=== PATIENT | female | born 2005 | race Caucasian/White ===

== ENCOUNTER 2025-09-27 14:03 | Emergency (ER) | payer BC, SELFPAY ==
[2025-09-27 14:06] VITALS: PULSE 80; RESP 18; O2SAT 98
[2025-09-27 14:42] VITALS: BP 125/87; PULSE 73; RESP 18; TEMP 36.7; O2SAT 98; BMI 17.1
--- NOTE | 2025-09-27 15:11 | PD.EDANX ---
ED Anxiety RME/HPI General Chief Complaint: Anxiety Stated Complaint: Panic attacks, chest pain, SOB Time Seen by Provider: 09/27/25 14:26 Arrival date/time: 09/27/25 14:03 19-year-old female patient came in for evaluation regarding anxiety-like symptoms. Patient has been suffering anxiety-like symptoms after Thanksgiving, was seen by PCP and was prescribed Lexapro first dose yesterday patient took her Lexapro today and feels still having anxiety like symptoms described as palpitation shortness of breath jittery and chest pain. Patient denies any other complaints no medication was taken prior to ER visit. Related Data Allergies Allergy/AdvReac Type Severity Reaction Status Date / Time No Known Drug Allergies Allergy Verified 09/27/25 14:10 Review of Systems Review of Systems Narrative Review of Systems: Review of system reviewed and within normal limits except mentioned in HPI ED Exam Narrative Physical exam: VITAL SIGNS: Reviewed. GENERAL APPEARANCE: Alert and interactive, follows commands, no acute distress, anxious HEAD AND FACE: Non-traumatic. ENT: PERRL, pink conjunctivitis, eyelid no trauma, Mucous membrane moist. NECK: Supple, nontender, no nuchal rigidity. CHEST: No tenderness, no crepitus, no paradoxical movement, no retractions. LUNGS: Clear, well ventilated, symmetric, no rales, no wheezing, no ronchi, no stridor, good breath sounds bilaterally. HEART: Regular rate, regular rhythm, no murmur, no gallops. ABDOMEN: Soft, positive bowel sounds, nondistended, no guarding, nontender, no rebound, no masses, RECTAL: Deferred. GENITAL: Deferred. NEUROLOGICAL: Gross motor function intact sensory function intact, Appropriate for age. MUSCULOSKELETAL: low back nontender, full range of motion. EXTREMITIES: Nontender, full range of motion. SKIN: Color pink, dry, no rash, no lacerations, no abrasions, no contusions. LYMPHATICS: Deferred. Anxious Course Vital Signs Vital signs: Vital Signs Temperature 98.1 F 09/27/25 14:42 Pulse Rate 73 09/27/25 14:42 Respiratory Rate 18 09/27/25 14:42 Blood Pressure 125/87 H 09/27/25 14:42 Pulse Oximetry (%) 98 09/27/25 14:42 Oxygen Delivery Method Room Air 09/27/25 14:42 Anxiety MDM Narrative MDM Narrative: 19-year-old female patient came in for evaluation regarding anxiety-like symptoms. Patient has been suffering anxiety-like symptoms after Thanksgiving, was seen by PCP and was prescribed Lexapro first dose yesterday patient took her Lexapro today and feels still having anxiety like symptoms described as palpitation shortness of breath jittery and chest pain. Patient denies any other complaints no medication was taken prior to ER visit. Discharge Plan Patient/Caregiver Discharge Instructions Print Language: Turkmen
--- NOTE | 2025-09-27 16:00 | EKG_ITS ---
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2005 Requested By: Edda Santillan Order Number: [id number] Reading MD: Edda Santillan Measurements Intervals [place] Rate: 74 P: 78 [place]: 150 QRS: 42 QRSD: 99 T: -59 QT: 401 QTc: 445 Interpretive Statements SINUS RHYTHM WITH SINUS ARRHYTHMIA INCOMPLETE RIGHT BUNDLE BRANCH BLOCK [90+ ms QRS DURATION, TERMINAL R IN V1/V2, 40+ ms S IN I/aVL/V4/V5/V6] MODERATE T-WAVE ABNORMALITY, CONSIDER ANTERIOR ISCHEMIA [-0.1+ mV T-WAVE IN V3/V4] MODERATE T-WAVE ABNORMALITY, CONSIDER INFERIOR ISCHEMIA [-0.1+ mV T-WAVE IN II/aVF] No previous ECG available for comparison /store/S0/[id number]
--- NOTE | 2025-09-27 16:00 | XR_ITS ---
EXAMINATION: PA chest single view TECHNIQUE: Upright PA chest single view Date and time: September 27, 2025, 1625 hours INDICATIONS: Chest pain today FINDINGS: Normal heart size Lungs are clear. Intact osseous structures IMPRESSION: No active disease
--- NOTE | 2025-09-27 16:01 | EDNOTE_ITS ---
ED Anxiety RME/HPI General Chief Complaint: Anxiety Stated Complaint: Panic attacks, chest pain, SOB Time Seen by Provider: 09/27/25 14:26 Arrival date/time: 09/27/25 14:03 This is a 19-year-old female that comes into the emergency room with complaints of panic attack chest pain and shortness of breath. Patient states that yesterday she started a new medication 10 mg of Lexapro. Patient states that after she took the medication she was very chatty and very awake. Patient states she did not feel anxious. Today after taking the Lexapro patient states that she felt like she was coming out of her skin and she got very anxious and got chest pain and shortness of breath. Patient reports that she has had a workup with Dr. Chang in [place]. Patient reports that she had a loop recorder placed she has had an echo and labs with Dr. Chang. Per patient Dr. Chang told her that there is nothing going on with her heart. Patient was also seen at [facility] in the past and was told that nothing is going on with her heart. Patient was offered Ativan at [facility] but she did not want at that time. Patient is concerned that there is something wrong with her thyroid because that has not been checked according to patient. Patient states that she also thinks that her anxiety started after she got Botox a couple weeks ago. Patient also reports that she also thinks that her anxiety started because she had her Nexplanon removed. Related Data Previous Rx's ?Medication ?Instructions ?Recorded lorazepam 0.5 mg tablet (Ativan) 0.25 mg (1/2 x 0.5 mg ) PO QDAY PRN 09/27/25 anxiety #3 tabs Allergies Allergy/AdvReac Type Severity Reaction Status Date / Time No Known Drug Allergies Allergy Verified 09/27/25 14:10 Review of Systems Review of Systems Systems Reviewed: All systems reviewed, normal except as documented Past Medical History Past Medical History Comments PMH COMMENT: Anxiety ED Exam Narrative Physical exam: VITAL SIGNS: Reviewed. GENERAL APPEARANCE: Alert and interactive, follows commands, no acute distress, HEAD AND FACE: Non-traumatic. ENT: PERRL, conjuctiva pink and clear, eyelid no trauma, Mucous membrane moist. NECK: Supple, nontender, no nuchal rigidity. CHEST: No tenderness, no crepitus, no paradoxical movement, no retractions. LUNGS: Clear, well ventilated, symmetric, no rales, no wheezing, no rhonchi, no stridor, good breath sounds bilaterally. HEART: Regular rate, regular rhythm, no murmur, no gallops. ABDOMEN: Soft, nondistended, no guarding, nontender, no rebound, no masses, NEUROLOGICAL: Gross motor function intact sensory function intact, Appropriate for age. MUSCULOSKELETAL: low back nontender, full range of motion. EXTREMITIES: No redness no swelling no skin breakdown on bilateral foot and leg. Distal neurovascular status intact bilateral foot SKIN: Color pink, dry, no rash, no lacerations, no abrasions, no contusions. Course Quality Measures none Orders Category Date Time Status EKG (ED ONLY) *Do not use* NOW Care 09/27/25 16:00 Active EKG (ED Only) Stat Exams 09/27/25 16:00 Ordered XR chest 1V Stat Exams 09/27/25 16:00 Ordered CBC Stat Lab 09/27/25 16:00 Ordered Comprehensive Metabolic Panel Stat Lab 09/27/25 16:00 Ordered TSH [Thyroid Stimulating Hormone] Stat Lab 09/27/25 16:00 Ordered Troponin I Stat Lab 09/27/25 16:00 Ordered LORazepam [Ativan] Med 09/27/25 16:00 Once 0.25 mg PO X1 ONE Vital Signs Vital signs: Vital Signs Temperature 98.1 F 09/27/25 14:42 Pulse Rate 73 09/27/25 14:42 Respiratory Rate 18 09/27/25 14:42 Blood Pressure 125/87 H 09/27/25 14:42 Pulse Oximetry (%) 98 09/27/25 14:42 Oxygen Delivery Method Room Air 09/27/25 14:42 PROCEDURES: EKG Interpretation #1: Date of EK09/27/25 Time of EK:06 Rate: 74 Interpretation: Interpreted by me (Sinus rhythm sinus arrhythmia patient has inverted T waves in lead to 3 aVF V3 V4 and flattening T waves in V5 V6.) EKG Impression: No ectopy, Normal QRS and Normal intervals Additional EKG comment: I discussed at length with patient about her EKG. Patient's EKG shows some inverted T waves in lead II, III, aVF, V3 and V4. Patient also has some flattened T waves in V6 and V5. Patient states that she was recently told by her shuffle board operator that her EKG is not normal but it is normal for her. Patient recently had loop recorder done and discussed sinus arrhythmia discussed results with patient prior to discharge. Anxiety MDM Narrative MDM Narrative: Chest x ray: FINDINGS: Normal heart size Lungs are clear. Intact osseous structures IMPRESSION: No active disease I spoke to patient at length. Patient has had a workup done in the emergency room at [facility] has had a workup done by her primary doctor and also shuffle board operator Dr. Chang. Patient recently started a medication Lexapro. Patient started having a panic attack after taking medication. It is likely she is reacting to the new medication. I did explain to her that some of the side effects of taking a new antidepressant can cause things like even suicidal ideation and worsening anxiety symptoms. I told her to discuss this with her primary doctor. Patient states that she will try to take half the tablet and see if it makes a difference. Patient requested Ativan what we give her here today because it helped her symptoms. I told patient we do not like to prescribe controlled substances but because it is a weekend I gave her a few pills to take only if she is having a panic attack. Patient has tried taking hydroxyzine and it is not successful. Patient given 3 pills of Ativan and told her to cut them in half if she needs to. Patient's significant other is with her. Patient verbalized understanding and feels comfortable plan of care. Patient told to come back to the emergency room if symptoms change or worsen. Patient data External records reviewed:: [facility] previous records Clinical information provided by:: patient Social determinants that could affect healthcare access:: none Patient has the following chronic illnesses:: none How is presenting disease/condition affected by chronic disease/condition?: no chronic disease Evaluation data The following diagnostics were reviewed and interpreted by me:: lab results, radiology exam(s) and EKG tracing(s) Lab and/or radiology exams considered but not ordered:: see note Interpretation Summary: see note Medications / Prescriptions Medications or Prescriptions considered but not ordered:: none Medication administrations:: Medication Administration History Lorazepam (Lorazepam 0.5 Mg Tablet) 0.25 mg PO X1 ONE Stop: 09/27/25 16:01 Consultations Consultation(s) initiated? (list below): No Diagnosis Most likely diagnosis given after review of the tests above:: anxiety Admission Indicated Admission indicated?: not indicated Admission Request Was there a request for admission?: No Disposition Plan Disposition Plan: Discharge Discharge Attestation Discharge Attestation: The patient and all family members were given an opportunity to ask questions and understood the discharge instructions. Discharge instructions specifically effects, indications for sooner follow up or return to the emergency department, and the expected course of current diagnosis. Patient condition: Stable Discharge Plan Plan Patient Disposition: HOME (Self Care) Patient condition on transfer: Stable Prescriptions/Referrals Prescriptions/Med Rec: New lorazepam [Ativan] 0.5 mg tablet 0.25 mg PO QDAY PRN (Reason: anxiety) Qty: 3 0RF Referrals: Casey Flowers([facility])MD [Primary Care Provider, Family Practice] - In 1 week Problem List Clinical Impression: Acute anxiety Patient/Caregiver Discharge Instructions Discharge Activity: activity as tolerated Education Materials: ED Anxiety Reaction Additional Instructions: Follow up with primary provider in 1-2 days. Come back to ED if symptoms change or worsen Print Language: [place] Island[place] Stand Alone Forms: Fatimah Award Info., Patient Portal Info Letter MARI/CHERYL Supervising Physician MARI/CHERYL Supervising Physician: eloisa
[2025-09-27 16:29] LABS: Basophils # (Auto) 0.0 Thou/mm3 (0.0-0.2); Basophils % (Auto) 0 % (0-2.5); Eosinophils # (Auto) 0.0 Thou/mm3 (0.0-0.5); Eosinophils % (Auto) 1 % (0-10); Hematocrit 38.4 % (36.0-46.0); Hemoglobin 13.2 g/dL (12.0-16.0); Immature Granulocytes Auto 0.02 Thou/mm3 (0.00-0.00); Lymphocytes # (Auto) 1.7 Thou/mm3 (1.0-5.0); Lymphocytes % (Auto) 22 % (10-50); Mean Corpuscular HGB Conc 34.4 g/dl (31.0-37.0); Mean Corpuscular Hemoglobin 30.9 pg (25.0-35.0); Mean Corpuscular Volume 90 fL (80-100); Monocytes # (Auto) 0.5 Thou/mm3 (0.0-0.8); Monocytes % (Auto) 7 % (0-12); Neutrophils # (Auto) 5.2 Thou/mm3 (1.8-7.7); Neutrophils % (Auto) 70 % (37-80); Nucleated Red Blood Cell # 0.00 Thou/mm3 (0.00-0.00); Nucleated Red Blood Cell % 0 /100 WBC (0); Platelet Count 178 Thou/mm3 (140-440); RDW Standard Deviation 39.0 fL (36.4-46.3); Red Blood Count 4.27 Miln/mm3 (4.00-5.20); White Blood Count 7.4 Thou/mm3 (4.5-11.0)
[2025-09-27 16:53] LABS: Alanine Aminotransferase 10 U/L (10-49); Albumin, Serum 5.0 gm/dL (3.5-5.0); Albumin/Globulin Ratio 1.7 (1.2-2.2); Alkaline Phosphatase 68 U/L (46-116); Anion Gap 11 (7-16); Aspartate Amino Transferase 22 U/L (0-34); BUN/Creatinine Ratio 14 Ratio (12-20); Bilirubin,Total 0.8 mg/dL (0.3-1.2); Blood Urea Nitrogen 11 mg/dL (9-23); Calcium 9.8 mg/dL (8.3-10.6); Calcium (Corrected) 9.8 mg/dL (8.5-10.1); Carbon Dioxide 25.1 mMol/L (20.0-31.0); Chloride 104 mMol/L (98-107); Creatinine (Component) 0.8 mg/dL (0.6-1.3); Estimated Creatinine Clearance 83.4 mL/min (>60); Globulin 2.9 gm/dL (2.3-3.5); Glucose 95 mg/dL (74-106); Osmolality,Calculated 278 (275-295); Potassium 4.2 mMol/L (3.4-5.1); Sodium 140 mMol/L (136-145); Thyroid Stimulating Hormone 0.68 uIU/mL (0.55-4.78); Total Protein 7.9 gm/dL (5.7-8.2); Troponin I < 0.020 ng/mL (0.0-0.045); eGFR > 60 See Note
== END 2025-09-27 18:21 | disposition home or self-care (01) ==
PROVIDERS: Nurse Practitioner Family; Emergency Provider Emergency Medicine; PCP Family Medicine
DX: F41.9 Anxiety disorder, unspecified (principal); R07.9 Chest pain, unspecified; I49.8 Other specified cardiac arrhythmias; I45.10 Unspecified right bundle-branch block
CPT/HCPCS: 36415; 71045; 80053; 84443; 84484; 85025; 93005; 99283; A9270